=== PATIENT | female | born 1965 | race Hispanic/Latino ===

== ENCOUNTER 2019-05-24 00:46 | Emergency (ER) | payer OTHER ==
[~2019-05-24] VITALS: Ht 157.5 cm; Wt 56.7 kg
[2019-05-24] MEDS ORDERED: KETOROLAC TROMETHAMINE 60 MG/2 ML VIAL IM ONE (01:15)
--- NOTE | 2019-05-24 01:49 | Diagnostic Imaging Report ---
EXAM: CT Abdomen and Pelvis WITHOUT contrast INDICATION: Back pain. COMPARISON: None. TECHNIQUE: Abdomen and pelvis were scanned utilizing a multidetector helical scanner from the lung base to the pubic symphysis without administration of IV contrast. Absence of intravenous contrast decreases sensitivity for detection of focal lesions and vascular pathology. Coronal and sagittal reformations were obtained. Stone protocol is performed. IV CONTRAST: None. ORAL CONTRAST: None. RADIATION DOSE: Total DLP: 200.6 mGy*cm Estimated effective dose: (DLP x 0.015 x size factor) mSv COMPLICATIONS: None FINDINGS: LINES and TUBES: None. LOWER THORAX: Unremarkable HEPATOBILIARY: No focal hepatic lesions. No biliary ductal dilation. GALLBLADDER: Status post cholecystectomy. SPLEEN: No splenomegaly. PANCREAS: No focal masses or ductal dilatation. ADRENALS: No adrenal nodules KIDNEYS/URETERS: The right kidney is absent. Nonobstructing 2 mm left mid pole renal stone. No evidence of hydronephrosis or mass. No ureteral stone. GI TRACT: No abnormal distention, wall thickening, or evidence of bowel obstruction. Appendix is normal. PELVIC ORGANS/BLADDER: Decompressed bladder. LYMPH NODES: No lymphadenopathy. VESSELS: Unremarkable. PERITONEUM / RETROPERITONEUM: No free air or fluid. BONES: No acute osseous abnormality. No significant degenerative disc changes. Mild facet degenerative changes at L4-L5 and L5-S1. SOFT TISSUES: Bilateral breast implants. IMPRESSION: Nonobstructing 2 mm left mid pole renal stone. No acute osseous abnormality at L3 as clinically queried. Absent right kidney. Status post cholecystectomy. Signed by: Dr. Dariela Guillen MD on 05/24/2019 1:45 AM
[2019-05-24 02:32] VITALS: BP 123/58
== END 2019-05-24 02:35 | disposition home or self-care (01) ==
LOC: ER 00:46
DX: M54.16 Radiculopathy, lumbar region (principal); N20.0 Calculus of kidney; Z90.5 Acquired absence of kidney
CPT/HCPCS: 74176; 99283; J1885